=== PATIENT | male | born 1985 | race Caucasian/White ===

== ENCOUNTER 2016-09-30 11:12 | Emergency (ER) | payer OTHER ==
[2016-09-30 11:16] VITALS: O2SAT 99
[2016-09-30] MEDS ORDERED: Albuterol-Ipratrop 3 mg / 0.5 (3 ml) UD INH STA (11:42)
--- NOTE | 2016-09-30 11:44 | C.PDOC ---
History Of Present Illness 31 yo male, h/o of asthma, presents with sob, cp, and cough. as per pt, started last night. pt states no fevers, no sore throat, no vomiting, diarrhea, or other complaints. pt reports pain, sharp across chest, non radiating. pt denies any melena, hematochezia. Time Seen by Provider: 09/30/16 11:22 Chief Complaint (Nursing): Respiratory Distress Past Medical History Reviewed: Historical Data, Nursing Documentation, Vital Signs Vital Signs: Last Vital Signs Temp 97.9 F 09/30/16 11:15 Pulse 89 09/30/16 11:15 Resp 20 09/30/16 11:36 BP 138/90 09/30/16 11:15 Pulse Ox 99 09/30/16 11:46 - Medical History PMH: Asthma - [facility] Procedures SKIN & SUBQ OP NEC (12/15/12) Family History: States: Unknown Family Hx - Social History Hx Tobacco Use: No Hx Alcohol Use: Yes Hx Substance Use: No - Immunization History Hx Tetanus Toxoid Vaccination: No Hx Influenza Vaccination: No Hx Pneumococcal Vaccination: No Review Of Systems Cardiovascular: Positive for: Chest Pain Respiratory: Positive for: Cough, Shortness of Breath Physical Exam - Physical Exam Appears: Well, No Acute Distress, Other (watching video on cell phone in nad, speaking full sentences, no increased wob) Skin: Normal Color, Warm, Dry Eye(s): bilateral: Normal Inspection, PERRL, EOMI Nose: Normal Throat: Normal Neck: Normal Cardiovascular: Rhythm Regular Respiratory: Decreased Breath Sounds (mildly diminished, symetrically), No Rhonchi, No Stridor, No Wheezing Gastrointestinal/Abdominal: Normal Exam, Soft, No Tenderness, No Guarding, No Rebound Back: Normal Inspection Extremity: Normal ROM ED Course And Treatment O2 Sat by Pulse Oximetry: 99 Medical Decision Making Medical Decision Making: ekg nsr [address] t wave changes normal intervals., perc neg. 1240 pt sleeping in nad. lungs clear. Disposition - Disposition Referrals: Ishaan Meyers MD [Staff Provider] - [facility] [Outside] [facility] [Outside] Disposition: HOME/ ROUTINE Disposition Time: 12:40 Condition: STABLE Additional Instructions: please follow up in clinic and with your doctor. return to er with worsening symptoms or concerns. Prescriptions: Albuterol HFA [Ventolin HFA 90 mcg/actuation (8 g)] 2 puff IH [id number] PRN #1 puff PRN Reason: Wheezing Acetaminophen [Tylenol Extra Strength] 500 mg PO Q4 PRN #20 tablet PRN Reason: Pain, Mild (1-3) - Clinical Impression Clinical Impression: Dyspnea, Chest pain
[2016-09-30] MEDS ORDERED: Albuterol-Ipratrop 3 mg / 0.5 (3 ml) UD ONE (11:47)
[2016-09-30 12:56] VITALS: BP 125/84; PULSE 96; RESP 18; TEMP 98.1
--- NOTE | 2016-09-30 14:54 | RAD ---
HISTORY: cough COMPARISON: No prior. TECHNIQUE: Chest PA and lateral FINDINGS: LUNGS: No active pulmonary disease. PLEURA: No significant pleural effusion identified. No pneumothorax apparent. CARDIOVASCULAR: Normal. OSSEOUS STRUCTURES: No significant abnormalities. VISUALIZED UPPER ABDOMEN: Normal. OTHER FINDINGS: None. IMPRESSION: No evidence of pneumonia or pleural effusion.
--- NOTE | 2016-10-05 15:06 | CARD ---
APPROVED REPORT EKG Measurement Heart [id number] <Conclusion> Normal sinus rhythm Normal ECG
== END 2016-09-30 12:56 | disposition home or self-care (01) ==
LOC: C.ER 11:12
DX: R07.9 Chest pain, unspecified (principal); R06.00 Dyspnea, unspecified